=== PATIENT | male | born 1985 | race Caucasian/White ===

== ENCOUNTER 2020-01-15 14:48 | Outpatient (CLI) | payer OTHER, SELFPAY ==
--- NOTE | ~2020-01-15 | XR_ITS ---
EXAMINATION: XR wrist LT min 3V DATE: 01/15/2020 15:01 INDICATION: Left wrist injury. Foreign body. TECHNIQUE: 4 views of left wrist were obtained. COMPARISON: Left hand radiographs 06/17/2011 FINDINGS: Bone alignment is normal. No fracture. Joint spaces are well maintained. IMPRESSION: 1. Normal left wrist. No radiopaque foreign body. Reviewed, dictated and finalized at location A.
== END 2020-01-15 14:49 | disposition home or self-care (01) ==
LOC: CHSIMG 14:49
PROVIDERS: PCP Family Medicine; Visit Provider Family Medicine
DX: M25.532 Pain in left wrist (principal)
CPT/HCPCS: 73110

== ENCOUNTER 2020-07-18 20:30 | Emergency (ER) | payer OTHER, SELFPAY ==
--- NOTE | ~2020-07-18 | CT_ITS ---
EXAMINATION: CT abdomen pelvis wo con DATE: 07/18/2020 21:10 INDICATION: Left flank pain TECHNIQUE: Computed tomography (CT) of the abdomen and pelvis was performed without intravenous contr ast. The dose-length product (DLP) was 1375.38 mGy-cm. Automated exposure control and iterative recon struction technique were employed. COMPARISON: 05/11/2017, 04/22/2013 FINDINGS: Minimal dependent atelectasis is present in the lung bases. The heart size is normal. The l iver, spleen, pancreas, gallbladder, and adrenal glands are normal. There is a [address] one of the left kidney upper pole. The right kidney is unremarkable. No stones are identified in the ureters or bladder. There is no hydronephrosis or hydroureter. A chronic 5.5 x 4.3 cm cystic lesion i s seen in the left pelvis abutting the left posterolateral bladder wall which has not significantly c hanged. No pathologically enlarged abdominal or pelvic lymph nodes are identified. There is no free i ntraperitoneal gas or evidence of bowel obstruction. The appendix is normal. There are changes of ant erior and posterior fusion at L5-S1. IMPRESSION: 1. No CT correlate for the patient's symptoms. 2. Nonobstructing left nephrolithiasis. 3. Chronic cystic lesion of the left pelvis abutting the posterior bladder without significant change which could reflect a cystic seminal vesicle lesion, lymphangioma, enteric duplication cyst, or less likely bladder diverticulum. Reviewed, dictated and finalized at location A. CONSULTANT IMPRESSION: 1. No CT correlate for the patient's symptoms. 2. Nonobstructing left nephrolithiasis. 3. Chronic cystic lesion of the left pelvis abutting the posterior bladder with out significant change which could reflect a cystic seminal vesicle lesion, lym phangioma, enteric duplication cyst, or less likely bladder diverticulum.
[2020-07-18 20:35] VITALS: BP 139/84; PULSE 77; RESP 19; TEMP 36.9; O2SAT 100
[2020-07-18] MEDS: KETOROLAC (*BKC) 60 MG/2 ML VIAL IM (20:52)
[2020-07-18] MEDS: ONDANSETRON HCL ODT 4 MG TABLET PO (20:52)
[2020-07-18 21:03] LABS: Add Urine Microscopic? NO; Appearance Urine Clear (Clear); Bilirubin Urine Negative (Negative); Blood Urine Negative (Negative); Color Urine Yellow (Yellow); Glucose Urine UA Negative (Negative); Ketones Urine Negative (Negative); Leukocyte Esterase Ur Negative (Negative); Nitrate Urine Negative (Negative); Protein Urine Negative (Negative); Urobilinogen Urine 0.2 mg/dL (0.2-1.0)
[2020-07-18 21:08] LABS: Hematocrit 46.4 % (40.0-54.0); Hemoglobin 15.9 g/dL (14.0-18.0); Mean Corpuscular HGB Conc 34.3 g/dL (32.0-36.0); Mean Corpuscular Hemoglobin 31.1 pg (27.0-31.0); Mean Corpuscular Volume 90.6 fL (78.0-102.0); Mean Platelet Volume 10.4 fl (8.7-11.0); Platelet Count Result 321 K/mm3 (150-420); Red Blood Count 5.12 M/mm3 (4.70-6.10); Red Cell Distribution Width 12.5 % (11.6-14.4); White Blood Count 12.1 K/mm3 (4.8-10.8)
--- NOTE | 2020-07-18 21:10 | ED.ABDPAIN ---
HPI - Abdominal Pain General Chief Complaint: Urogenital-Male Stated Complaint: possible kidney stone Time Seen by Provider: 07/18/20 21:12 Source: patient and family (He has had left flank pain since this am early when he woke. Pain has been moderately severe, sharp, ongoing, not releived by measures taken at home. He says this feels like a kidney stone he had in the past, and he comes in because of this reason. ) Mode of arrival: ambulatory Limitations: no limitations History of Present Illness HPI narrative: Patient comes in due to moderately severe to severe sharp ongoing left flank pain radiating around to groin, this has been ongoing since this am when he woke. This feels like a kidney stone he had in the past. He has tolerated this all day, and comes in now because he has been developing nausea with this within the last hour. MD elicited complaint: flank pain Pertinent past history: kidney stones Pain Consistency: constant Exacerbating factors: nothing Relieving factors: nothing Related Data Allergies Allergy/AdvReac Type Severity Reaction Status Date / Time No Known Allergies Allergy Verified 07/18/20 20:56 Review of Systems Constitutional: Constitutional: Reports no additional constitutional complaints Eyes: Eyes: Reports no additional eye complaints ENT: Reports system reviewed and no additional complaints, except as documented Cardiovascular: Cardiovascular: Reports no additional cardiovascular complaints Respiratory: Respiratory: Reports no additional respiratory complaints Gastrointestinal: Gastrointestinal: Reports no additional gastrointestinal complaints Genitourinary: Genitourinary: Reports no additional male genitourinary complaints Musculoskeletal: Musculoskeletal: Reports no additional musculoskeletal complaints Integumentary/Breasts: Skin/Breast: Reports system reviewed and no additional complaints, except as docu Neurologic: Reports system reviewed and no additional complaints, except as documented Psychiatric: Psychiatric: Reports no additional psychiatric complaints Endocrine: Endocrine: Reports no additional endocrine complaints Hematologic/Lymphatic: Hematologic/Lymphatic: Reports no additional hematologic/lymphatic complaints Allergic/Immunologic: Allergic/Immunologic: Reports no additional allergic/immunologic complaints [facility] Past Medical History Medical History Renal calculi Surgical History Surgical History Previous back surgery Family History Family History (Updated 07/18/20 @ 21:19 by Prince Trevizo MD) Mother Psoriatic arthritis Social History Social History Smoking packs per day: 1 Smoking cigarettes per day: 20.0 Years smoked: 20 Smoking pack-years: 20.00 Smoking status: Current every day smoker Tobacco type: cigarettes Alcohol intake: never Substance use: current Substance use type: marijuana Living arrangements: with family Exam Narrative: Exam Narrative: He appears uncomfortable Const: Nutritional Appearance: well nourished Orientation/consciousness: patient oriented x3 HENMT: Head: normal to inspection Face and sinus: normal facial exam Eyes: Conjunctivae: conjunctivae normal Pupils: Equal, round and reactive pupils present Neck: Neck: normal visual inspection Chest: Chest palpation & inspection: normal inspection of the chest Resp: Effort & Inspection: normal respiratory effort Auscultation: clear to auscultation bilaterally Cardio: Rate: regular rate Rhythm: regular rhythm GI: GI Palp: Yes Soft to palpation Auscultation: normal bowel sounds : Testes: Testes normal Other: He has really no discomfort in LLQ, this does not appear to be a diverticulitis. Skin: General skin exam: normal color Neuro: General: patient oriented x3 and moves all extremities
[2020-07-18 21:18] LABS: Alanine Aminotransferase 36 U/L (16-63); Albumin Level 3.8 g/dL (3.4-5.0); Alkaline Phosphatase 87 U/L (46-116); Anion Gap 11 mmol/L (8-16); Aspartate Amino Transferase 23 U/L (15-37); Bilirubin,Total 0.3 mg/dL (0.00-1.00); Blood Urea Nitrogen 13 mg/dL (7-18); Calcium 8.3 mg/dL (8.5-10.1); Carbon Dioxide 26 mmol/L (21-32); Chloride 105 mmol/L (98-108); Estimated Glomerular Filt Rate > 60; Glucose 92 mg/dL (70-99); Osmolality Calculated 294 mOsm/kg (285-295); Sodium 142 mmol/L (136-145); Total Protein 7.3 g/dL (6.4-8.2)
[2020-07-18 21:30] LABS: Band Neutrophils Percent 0 % (0-6); Basophils Absolute Manual 0.12 K/mm3 (0-0.1); Basophils Percent Manual 1 % (0-1); Eosinophils Absolute Manual 0.24 K/mm3 (0.02-0.5); Eosinophils Percent Manual 2 % (1-6); Metamyelocytes Percent 1 %; Monocytes Absolute Manual 0.72 K/mm3 (0.1-0.90); Monocytes Percent Manual 6 % (3-9); Neutrophils Absolute Manual 3.99 K/mm3 (1.3-6.7); Neutrophils Percent Manual 33 % (46-73); Platelet Estimate Adequate (Adequate); Total Cells Counted 100
[2020-07-18 21:31] LABS: Atypical Lymphocytes Present; Lymphocytes Absolute Manual 6.89 K/mm3 (1.1-4.5); Lymphocytes Percent Manual 57 % (18-44)
[2020-07-18 22:23] VITALS: BP 138/80; PULSE 61; RESP 20; O2SAT 98
== END 2020-07-18 22:27 | disposition home or self-care (01) ==
PROVIDERS: Emergency Provider Emergency Medicine; PCP Family Medicine
DX: R10.9 Unspecified abdominal pain (principal)
CPT/HCPCS: 36415; 74176; 80053; 81003; 85025; 96372; 99283; 99284; A9270; J1885

== ENCOUNTER 2020-07-26 08:56 | Outpatient (CLI) | payer OTHER, SELFPAY ==
[2020-07-26 09:39] LABS: SARS-CoV-2 Ag Positive (Negative)
== END 2020-07-26 08:57 | disposition home or self-care (01) ==
LOC: CHSLAB 09:00
PROVIDERS: PCP Family Medicine; Visit Provider Family Medicine
DX: U07.1 COVID-19 (principal)
CPT/HCPCS: 87426

== ENCOUNTER 2020-09-29 13:28 | Outpatient (CLI) | payer OTHER, SELFPAY ==
--- NOTE | ~2020-09-29 | XR_ITS ---
EXAMINATION: XR_CERV2-3V_CR DATE: 09/29/2020 13:52 INDICATION: Chronic left-sided neck pain. TECHNIQUE: 3 views of cervical spine were obtained. COMPARISON: Cervical spine radiographs 02/27/2014 FINDINGS: There is 5 degrees levocurvature of cervicothoracic spine. Vertebral body heights and inter vertebral disc heights are normal. The uncovertebral joints and facet joints are unremarkable. No freedom tral canal stenosis or prevertebral soft tissue swelling. IMPRESSION: 1. No etiology for the patient's symptoms. Reviewed, dictated and finalized at location A. UP OPERATOR
--- NOTE | ~2020-09-29 | XR_ITS ---
EXAMINATION: XR thoracic spine 3V DATE: 09/29/2020 13:52 INDICATION: Left-sided back pain. TECHNIQUE: 3 views of the thoracic spine were obtained. COMPARISON: Thoracic spine radiographs 03/22/2017 FINDINGS: There is 6 degrees levocurvature of upper thoracic spine. Vertebral body heights and interv ertebral disc heights are normal. There are endplate osteophytes at multiple levels. IMPRESSION: 1. Mild thoracic spondylosis. Reviewed, dictated and finalized at location A. LOADER
== END 2020-09-29 13:29 | disposition home or self-care (01) ==
LOC: CHSIMG 13:30
PROVIDERS: PCP Family Medicine; Visit Provider Family Medicine
DX: M54.2 Cervicalgia (principal); M47.24 Other spondylosis with radiculopathy, thoracic region
CPT/HCPCS: 72040; 72072

== ENCOUNTER 2020-10-01 20:50 | Emergency (ER) | payer OTHER, SELFPAY ==
--- NOTE | ~2020-10-01 | XR_ITS ---
EXAMINATION: XR chest 1V portable DATE: 10/01/2020 21:14 INDICATION: Left chest pain. TECHNIQUE: A single frontal view of the chest was obtained. COMPARISON: Chest 2 views 11/11/17 FINDINGS: The chest demonstrates clear lungs without pneumonia, pleural effusion, or pneumothorax. Th e heart size is normal. IMPRESSION: 1. No acute cardiopulmonary disease. Reviewed, dictated and finalized at location A. ER SERVICE REPRESENTATIVE
[2020-10-01 20:55] VITALS: BP 134/77; PULSE 70; RESP 20; TEMP 36.6; O2SAT 100
--- NOTE | 2020-10-01 20:55 | ECG_ITS ---
Measurements Intervals [place] Rate: 74 P: 34 WI: 162 QRS: 73 QRSD: 103 T: 48 QT: 375 QTc: 416 Interpretive Statements SINUS RHYTHM MINIMAL Q WAVES- ANTEROLAT/INF LEADS BASELINE WANDER- II, AVR, AVL, AVF, V1-V6 BORDERLINE ECG Electronically Signed On 10-01-2020 21:21:59 LAUNDRY MANAGER by Fabrice Benavides D.O.
--- NOTE | 2020-10-01 21:20 | ED.CHESTPAIN ---
HPI - Chest Pain General Chief Complaint: Chest Pain Stated Complaint: chest pain, arm burning Time Seen by Provider: 10/01/20 21:10 Source: patient Mode of arrival: ambulatory Limitations: no limitations History of Present Illness HPI narrative: Patient comes in with chest pain to left chest, moderately severe, ongoing. This started after he walked the dog. Because it has been ongoing, moderately severe, sharp, not improving, he comes in. Related Data Allergies Allergy/AdvReac Type Severity Reaction Status Date / Time No Known Allergies Allergy Verified 07/18/20 20:56 Review of Systems Constitutional: Constitutional: Reports no additional constitutional complaints Eyes: Eyes: Reports no additional eye complaints ENT: Reports system reviewed and no additional complaints, except as documented and Reports Normal hearing present Cardiovascular: Cardiovascular: Reports no additional cardiovascular complaints Respiratory: Respiratory: Reports no additional respiratory complaints Gastrointestinal: Gastrointestinal: Reports no additional gastrointestinal complaints Genitourinary: Genitourinary: Reports no additional male genitourinary complaints Musculoskeletal: Musculoskeletal: Reports no additional musculoskeletal complaints Integumentary/Breasts: Skin/Breast: Reports system reviewed and no additional complaints, except as docu Neurologic: Reports system reviewed and no additional complaints, except as documented Psychiatric: Psychiatric: Reports no additional psychiatric complaints Endocrine: Endocrine: Reports no additional endocrine complaints Hematologic/Lymphatic: Hematologic/Lymphatic: Reports no additional hematologic/lymphatic complaints [facility] Past Medical History Medical History Renal calculi Surgical History Surgical History Previous back surgery Family History Family History Mother Psoriatic arthritis Social History Social History Smoking packs per day: 1 Smoking cigarettes per day: 20.0 Years smoked: 20 Smoking pack-years: 20.00 Smoking status: Current every day smoker Tobacco type: cigarettes Alcohol intake: never Substance use: current Substance use type: marijuana Exam Const: General: cooperative, healthy appearing and no acute distress Nutritional Appearance: average body habitus Orientation/consciousness: oriented to person Limitations: no limitations HENMT: Head: normal to inspection, normocephalic and atraumatic Ears: hearing grossly normal bilaterally, external ears normal and TM's normal bilaterally General nose exam: Normal external nose present and Normal nasal mucous membranes and turbinates present Face and sinus: normal facial exam Mouth: Yes Normal oral and palatal mucosa present, Yes oropharynx normal, Yes moist mucous membranes and Yes moist mucous membranes abnormal Throat: posterior oropharynx normal Eyes: General: appearance normal, both eyes and all related structures Conjunctivae: conjunctivae normal Neck: Neck: normal visual inspection Lymphatic: no lymphadenopathy noted Chest: Chest palpation & inspection: normal inspection of the chest Resp: Effort & Inspection: normal respiratory effort and able to speak in complete sentences Auscultation: clear to auscultation bilaterally Cardio: Jugular venous distension: no JVD Rate: regular rate Rhythm: regular rhythm Heart sounds: S1 normal heart sound present and S2 normal heart sound present GI: Inspection: normal to inspection GI Palp: Yes Soft to palpation (nontender) Back/Spine/Pelvis: Back: no CVA tenderness Skin: General skin exam: normal color Neuro: General: oriented to person, oriented to place and oriented to time Cranial nerves: Yes CN's II-XII intact bilaterally and Yes Facia
[2020-10-01 21:27] LABS: Basophils Absolute Auto 0.09 K/mm3 (0.00-0.10); Basophils Percent Auto 0.8 % (0.0-1.0); Eosinophils Absolute Auto 0.23 K/mm3 (0.02-0.50); Eosinophils Percent Auto 2.1 % (1.0-6.0); Hematocrit 43.6 % (40.0-54.0); Hemoglobin 14.6 g/dL (14.0-18.0); Immature Granulocyte Absolute 0.07 K/mm3 (0.00-0.00); Immature Granulocyte Percent A 0.7 % (0.0-0.0); Lymphocytes Absolute Auto 5.45 K/mm3 (1.10-4.50); Lymphocytes Percent Auto 50.8 % (18.0-42.0); Mean Corpuscular HGB Conc 33.5 g/dL (32.0-36.0); Mean Corpuscular Hemoglobin 30.5 pg (27.0-31.0); Mean Corpuscular Volume 91.2 fL (78.0-102.0); Mean Platelet Volume 10.6 fl (8.7-11.0); Monocytes Absolute Auto 0.85 K/mm3 (0.10-0.90); Monocytes Percent Auto 7.9 % (2.0-11.0); Neutrophils Percent Auto 37.7 % (50.0-70.0); Platelet Count Result 282 K/mm3 (150-420); Red Blood Count 4.78 M/mm3 (4.70-6.10); Red Cell Distribution Width 12.7 % (11.6-14.4); White Blood Count 10.7 K/mm3 (4.8-10.8)
[2020-10-01] MEDS: KETOROLAC (*BKC) 60 MG/2 ML VIAL IM (21:44)
[2020-10-01 21:50] LABS: Alanine Aminotransferase 36 U/L (16-63); Albumin Level 3.5 g/dL (3.4-5.0); Alkaline Phosphatase 77 U/L (46-116); Anion Gap 6 mmol/L (8-16); Aspartate Amino Transferase 17 U/L (15-37); Bilirubin,Total 0.2 mg/dL (0.00-1.00); Blood Urea Nitrogen 18 mg/dL (7-18); Calcium 8.7 mg/dL (8.5-10.1); Carbon Dioxide 28 mmol/L (21-32); Chloride 104 mmol/L (98-108); Estimated CRCL calculation 94 ml/min; Estimated Glomerular Filt Rate > 60; Glucose 134 mg/dL (70-99); Osmolality Calculated 289 mOsm/kg (285-295); Potassium 4.1 mmol/L (3.5-5.1); Sodium 138 mmol/L (136-145); Total Protein 6.6 g/dL (6.4-8.2); Troponin I 4.7 ng/L (0.00-60.4)
[2020-10-01 21:58] LABS: Creatine Kinase 103 U/L (39-308)
[2020-10-01 22:04] LABS: BNP < 5 pg/mL (0-100)
[2020-10-01 22:10] LABS: D Dimer 0.19 mg/L (0.19-0.50)
[2020-10-01 22:30] VITALS: BP 129/72; PULSE 66; RESP 16; O2SAT 99
[2020-10-01 23:00] VITALS: BP 128/79; PULSE 66; RESP 16; O2SAT 99
[2020-10-01 23:05] LABS: Amphetamine Screen Urine Negative (Negative); Barbiturate Screen Urine Negative (Negative); Benzodiazepines Screen Urine Negative (Negative); Cannabinoid Screen Urine Positive (Negative); Cocaine Screen Urine Negative (Negative); Methadone Screen Urine Negative (Negative); Opiate Screen Urine Negative (Negative); Phencyclidine Screen Urine Negative (Negative)
[2020-10-01 23:29] VITALS: BP 128/75; PULSE 70; RESP 16; TEMP 36.1; O2SAT 99
[2020-10-02 00:18] VITALS: BP 116/72; PULSE 64; RESP 16; O2SAT 99
[2020-10-02 01:10] VITALS: BP 128/72; PULSE 61; RESP 16; O2SAT 99
[2020-10-02 01:29] LABS: Troponin I 4.8 ng/L (0.00-60.4)
[2020-10-02 01:37] VITALS: BP 120/70; PULSE 74; RESP 16; TEMP 36.6; O2SAT 98
== END 2020-10-02 01:39 | disposition home or self-care (01) ==
PROVIDERS: Emergency Provider Emergency Medicine; PCP Family Medicine
DX: R07.89 Other chest pain (principal)
CPT/HCPCS: 36415; 71045; 80053; 80307; 82550; 83880; 84484; 85025; 85380; 93005; 96372; 99283; 99284; J1885

== ENCOUNTER 2020-12-22 22:11 | Emergency (ER) | payer OTHER, SELFPAY ==
--- NOTE | ~2020-12-22 | XR_ITS ---
EXAMINATION: XR knee LT 3V DATE: 12/22/2020 22:59 INDICATION: Left knee pain TECHNIQUE: Three views of the left knee were obtained. COMPARISON: None. FINDINGS: Alignment is normal. No fracture or osteochondral lesion. Joint spaces are normal with no e rosions. No joint effusion/synovitis. There is mild prepatellar soft tissue swelling. IMPRESSION: 1. No acute osseous abnormality. Reviewed, dictated and finalized at location A.
[2020-12-22 22:30] VITALS: BP 109/82; PULSE 81; RESP 20; TEMP 36.1; O2SAT 99
--- NOTE | 2020-12-22 23:17 | ED.GENADULT ---
HPI - General Adult General Chief complaint: Extremity Injury, Lower Stated complaint: L knee pain Source: patient and family Mode of arrival: ambulatory Limitations: no limitations History of Present Illness HPI narrative: Jorje is a 35M with a PMH of kidney stones, GERD, and chronic back pain that presented to the ER after injuring his left knee. He was pushing his car to the side of the road when he tried to jump in and missed. He had one foot in but his left foot slipped and he landed on his knee. He had immediate pain there but no other injuries. Related Data Home Medications Medication Instructions Recorded Confirmed No Home Medications 12/23/20 12/23/20 Allergies Allergy/AdvReac Type Severity Reaction Status Date / Time No Known Allergies Allergy Verified 07/18/20 20:56 Review of Systems Constitutional: Constitutional: Reports no additional constitutional complaints Eyes: Eyes: Reports no additional eye complaints ENT: Reports system reviewed and no additional complaints, except as documented Cardiovascular: Cardiovascular: Reports no additional cardiovascular complaints Respiratory: Respiratory: Reports no additional respiratory complaints Gastrointestinal: Gastrointestinal: Reports no additional gastrointestinal complaints Genitourinary: Genitourinary: Reports no additional male genitourinary complaints Musculoskeletal: Musculoskeletal: Reports no additional musculoskeletal complaints Integumentary/Breasts: Skin/Breast: Reports system reviewed and no additional complaints, except as docu Neurologic: Reports system reviewed and no additional complaints, except as documented Psychiatric: Psychiatric: Reports no additional psychiatric complaints Endocrine: Endocrine: Reports no additional endocrine complaints Hematologic/Lymphatic: Hematologic/Lymphatic: Reports no additional hematologic/lymphatic complaints Allergic/Immunologic: Allergic/Immunologic: Reports no additional allergic/immunologic complaints [facility] Past Medical History Medical History Renal calculi Surgical History Surgical History Previous back surgery Family History Family History Mother Psoriatic arthritis Social History Social History Smoking packs per day: 1 Smoking cigarettes per day: 20.0 Years smoked: 20 Smoking pack-years: 20.00 Smoking status: Current every day smoker Tobacco type: cigarettes Alcohol intake: never Substance use: current Substance use type: marijuana Exam Const: General: no acute distress and alert Orientation/consciousness: patient oriented x3 HENMT: Head: normal to inspection Other: atraumatic Eyes: Conjunctivae: conjunctivae normal Pupils: Equal, round and reactive pupils present Neck: Neck: normal visual inspection Chest: Chest palpation & inspection: normal inspection of the chest Resp: Effort & Inspection: normal respiratory effort, not labored and not tachypneic Cardio: Rate: regular rate Back/Spine/Pelvis: Other: No midline tenderness Skin: General skin exam: normal color Other: Quarter sized abraison over the left knee Neuro: General: patient oriented x3, moves all extremities and CN's II-XI intact bilaterally Extrem: Other: Left knee had no deformity. It was TTP over the lateral joint line. No varus/valgus laxity. Negative anterior/posterior drawer test. +Zohreh and +Thessaly test Psych: Appearance: grossly normal Mental Status: mental status grossly normal Affect: normal affect Thought content: Yes Normal thought content present Course Course Emergency Course: Ordered Toradol for the pain. EXAMINATION: XR knee LT 3V DATE: 12/22/2020 22:59 INDICATION: Left knee pain TECHNIQUE: Three views of the left k
[2020-12-23 00:10] VITALS: BP 109/82; PULSE 81; RESP 20; TEMP 36.1; O2SAT 100
== END 2020-12-22 23:25 | disposition home or self-care (01) ==
PROVIDERS: Emergency Provider Family Medicine; PCP Family Medicine
DX: S83.92XA Sprain of unspecified site of left knee, initial encounter (principal)
CPT/HCPCS: 73562; 99282; 99283

== ENCOUNTER 2020-12-23 08:45 | Outpatient (RCR) | payer OTHER, SELFPAY ==
--- NOTE | 2020-12-23 09:36 | PTOPEVAL ---
Thank you for referring Jorje Magallanes to [facility].? The patient is scheduled to be seen for therapy? __3__x/week for 12 visits. Please review, sign, date and return this plan of care TREVIN. I agree with and certify that the following plan of care is medically necessary. Referring Physician Date Admitting Provider: Attending Provider: marietta roberson Referring Provider: *PT Outpatient Evaluation Start: 12/23/20 09:01 Freq: Status: Active Protocol: Document 12/23/20 09:02 LEEANNE (Rec: 12/23/20 09:36 LEEANNE [id number]) Therapy Assessment Status Assessment Status Assessment Status Evaluation Outpatient Past Medical History Gastrointestinal History Hx Gastroesophageal Reflux Disease Yes Genitourinary History Hx Kidney Stones Yes Musculoskeletal History Hx Back Pain Yes Hx Spinal Surgery Yes HEENT History Hx Dental Problems Yes Psychosocial History Hx Anxiety Yes Evaluation Information Problem Diagnosis left shoulder impingement syndrome Onset 12/20/20 Subjective Information Pt. reports experiencing on/ Query Text:As Reported By Patient/ off shoulder pain for several Family years. He states that pain is located in the front of the left shoulder. He recalls no specific activities that increase his shoulder pain. He reports that working above his head is difficult due to shoulder pain. He states that pain does not disrupt sleep. He reports that his goal for therapy is to decrease his left shoulder pain. Diagnostic Tests X-Rays For This Problem Yes Prior Level of Function Activity Level (Last 3 Months) Occupation unemployed Hand Dominance Right Activity of Daily Living Ability Independent Indoor/Home Mobility Independent Community Mobility Independent Stairs Ability Independent Functional Cognition (Planning, Shopping Independent , Taking Medications) Cooking Yes Cleaning Yes Laundry Yes Shopping Yes Driving Yes Comments Additional Prior Level of Function Pt. reports he recieved a Comments cortisone injection about 3 weeks ago with temporary
--- NOTE | 2021-01-19 10:26 | PCPTNOTE ---
Pt. attended a total of 3 sessions from 12/23/20 to 12/30/20. He has failed to return to the clinic. Refer to last daily note for pt. discharge status. Thank you for the referral of this pt. Gallito Saldaña, MPT
== END 2020-12-30 14:21 | disposition home or self-care (01) ==
LOC: CHSPT 08:45
PROVIDERS: PCP Family Medicine
DX: M75.42 Impingement syndrome of left shoulder (principal)
CPT/HCPCS: 97014; 97110; 97161; G0283

== ENCOUNTER 2021-03-03 11:22 | Emergency (ER) | payer OTHER, SELFPAY ==
[2021-03-03 11:30] VITALS: BP 146/94; PULSE 72; RESP 16; TEMP 36.4; O2SAT 99
[2021-03-03] MEDS: diazePAM (*CRX) 5 MG TABLET PO (11:47)
--- NOTE | 2021-03-03 12:05 | ED.PSYCH ---
HPI - Psych General Chief Complaint: Psychiatric Symptoms Stated Complaint: feels like having anxiety attack Time Seen by Provider: 03/03/21 11:50 Source: patient and family Mode of arrival: ambulatory Limitations: no limitations History of Present Illness HPI Narrative: Patient comes in feeling he has been having an anxiety attack, moderately severe, associated with him feeling he has a sensation of not being able to rest, which started a few days ago, and has been ongoing now for about 3 days. There is nothing known to have precipitated this. This has caused him distress. Talking to himself, an d taking the measures he knows to take at home had not seemed to help. No modifying factors. He has a history of anxiety attacks, and has taken medications for this in the past. Onset (ago): day(s) Duration: constant History of same: Yes Relieving factors: none Exacerbating factors: none Associated symptoms: denies other symptoms Treatments prior to arrival: other (talking to himself) Related Data Home Medications Medication Instructions Recorded Confirmed No Home Medications 12/23/20 12/23/20 Allergies Allergy/AdvReac Type Severity Reaction Status Date / Time No Known Allergies Allergy Verified 07/18/20 20:56 Review of Systems Constitutional: Constitutional: Reports no additional constitutional complaints Eyes: Eyes: Reports no additional eye complaints ENT: Reports system reviewed and no additional complaints, except as documented Cardiovascular: Cardiovascular: Reports no additional cardiovascular complaints Respiratory: Respiratory: Reports no additional respiratory complaints Gastrointestinal: Gastrointestinal: Reports no additional gastrointestinal complaints Genitourinary: Genitourinary: Reports no additional male genitourinary complaints Musculoskeletal: Musculoskeletal: Reports no additional musculoskeletal complaints Integumentary/Breasts: Skin/Breast: Reports system reviewed and no additional complaints, except as docu Neurologic: Reports system reviewed and no additional complaints, except as documented Psychiatric: Psychiatric: Reports no additional psychiatric complaints Endocrine: Endocrine: Reports no additional endocrine complaints Hematologic/Lymphatic: Hematologic/Lymphatic: Reports no additional hematologic/lymphatic complaints Allergic/Immunologic: Allergic/Immunologic: Reports no additional allergic/immunologic complaints [facility] Past Medical History Medical History Renal calculi Surgical History Surgical History Previous back surgery Family History Family History Mother Psoriatic arthritis Social History Social History Smoking packs per day: 1 Smoking cigarettes per day: 20.0 Years smoked: 20 Smoking pack-years: 20.00 Smoking status: Current every day smoker Tobacco type: cigarettes Alcohol intake: never Substance use: current Substance use type: marijuana Exam Const: General: healthy appearing, no acute distress and alert Orientation/consciousness: patient oriented x3 HENMT: Head: normal to inspection Ears: external ears normal and TM's normal bilaterally General nose exam: Normal external nose present and Normal nares present Mouth: Yes Normal oral and palatal mucosa present Eyes: Conjunctivae: conjunctivae normal Neck: Neck: normal visual inspection Chest: Chest palpation & inspection: normal inspection of the chest Resp: Effort & Inspection: normal respiratory effort Auscultation: clear to auscultation bilaterally Cardio: Rate: regular rate Rhythm: regular rhythm GI: GI Palp: Yes Soft to palpation (nontender) Auscultation: normal bowel sounds Skin: General skin exam: normal color Rashes: no rashes Neuro: General: patie
[2021-03-03 12:25] VITALS: RESP 15
== END 2021-03-03 12:25 | disposition home or self-care (01) ==
PROVIDERS: Emergency Provider Emergency Medicine; PCP Family Medicine
DX: F41.9 Anxiety disorder, unspecified (principal)
CPT/HCPCS: 99282; 99283; A9270

== ENCOUNTER 2021-03-24 10:20 | Outpatient (CLI) | payer OTHER, SELFPAY | END 2021-03-24 10:21 | disposition home or self-care (01) | LOC: CHSIMG 10:21 | PROVIDERS: PCP Family Medicine; Visit Provider Family Medicine | DX: R94.31 Abnormal electrocardiogram [ECG] [EKG] (principal) | CPT/HCPCS: 93306 ==

== ENCOUNTER 2021-10-31 11:34 | Outpatient (CLI) | payer OTHER, SELFPAY ==
--- NOTE | ~2021-10-31 | XR_ITS ---
XR ankle RT min 3V DATE: 10/31/2021 11:58 INDICATION: Right ankle pain for 2 days after kicking injury TECHNIQUE: 5 views COMPARISON: None FINDINGS: Posterior calcaneal enthesopathy. Slight plantar calcaneal enthesopathy. No fracture or dislocation of the ankle or disruption of the ankle mortise. No periosteal reaction or bone destruction. IMPRESSION: No fracture or dislocation Reviewed, dictated and finalized at location A. IMPRESSION: No fracture or dislocation
== END 2021-10-31 11:35 | disposition home or self-care (01) ==
LOC: CHSIMG 11:36
PROVIDERS: PCP Family Medicine; Visit Provider Family Medicine
DX: M25.571 Pain in right ankle and joints of right foot (principal)
CPT/HCPCS: 73610

== ENCOUNTER 2022-08-02 16:15 | Outpatient (CLI) | payer OTHER, SELFPAY ==
--- NOTE | ~2022-08-02 | XR_ITS ---
XR_CERV2-3V_CR DATE: 08/02/2022 16:36 INDICATION: Neck pain, pain at base of skull for 5 days TECHNIQUE: AP, open-mouth, lateral and swimmer views COMPARISON: None FINDINGS: There is straightening of the cervical spine which may be due to muscle spasm. C1 and C2 ar e normally aligned and the odontoid process is intact. No fracture or dislocation or locked facet or prevertebral soft tissue swelling. Cervical interspaces are well preserved. IMPRESSION: Straightening of the cervical spine, which may be due to muscle spasm Reviewed, dictated and finalized at Location A. Reviewed, dictated and finalized at location A. GE DECKHAND IMPRESSION: Straightening of the cervical spine, which may be due to muscle spa sm
== END 2022-08-02 16:16 | disposition home or self-care (01) ==
LOC: CHSIMG 16:16
PROVIDERS: PCP Family Medicine; Visit Provider Family Medicine
DX: M54.2 Cervicalgia (principal); M53.82 Other specified dorsopathies, cervical region
CPT/HCPCS: 72040

== ENCOUNTER 2022-08-14 15:06 | Outpatient (RCR) | payer OTHER, SELFPAY ==
--- NOTE | 2022-08-14 14:31 | PTOPEVAL1 ---
Assessment and note entered by Heidi Newberry DPT Evaluation Information Assessment Status Evaluation Diagnosis Cervicalgia Onset 08/04/2022 Subjective Information Pt reports that his neck pain began a few weeks ago. He notes that he gets a lot of bad headaches that hurt at the base of his neck and radiates to his ears and top of his head. He reports he feels more stiff in the neck and looks more with the shoulders than the neck. He notes that headaches do not occur all of the time and he has had 2 bad headaches. He reports that when he is having these headaches, he has blurry vision and feels off balance and they lasted a few hours. He uses diclofenac to improve his symptoms. Pt reports that this hasn't really affected his sleep. He did notice that when turning his head, he occasionally gets burning down his arms. Pt reports that in his past, he has had multiple head injuries but were never diagnosed as concussions. He reports that he likes to play pool a lot and notes his head is constantly in awkward positions. Pt would like to reduce pain to be able to enjoy his usual activities. Reported Pain Level Pain Score 0: Self Report Assessment PT Clinical Summary Pt presents to PT with headaches and neck pain and presents with decreased deep neck flexor endurance, decreased mobility, and altered posture . His current deficits make it more challenging for him to rotate his head and move his head without pain. He was provided with an HEP focused on improving mobility within his tolerance. He will benefit from skilled PT to facilitate symptom relief, improve the aforementioned impairments, and return to functional and recreational activities. Plan of Care Interventions Electrical Stimulation,Hot Pack/Cold Pack,Manual Therapy,Patient/Caregiver Educati,Therapeutic Activities,Therapeutic Exercise PT Services Indicated Yes Treatment Frequency and 2x week for 8 visits Duration These treatments will address the objective and functional deficits as defined above. The patient will be advanced safely and appropriately in order for the patient to progress towards his/her prior level of function. Additional exercises will be introduced and as well as a comprehensive home exercise program upon discharge, if needed, ?to ensure carryover of functional gains achieved in the clinic. This treatment plan has been reviewed and agreement upon by the patient.
== END 2022-08-22 10:06 | disposition home or self-care (01) ==
LOC: CHSPT 15:06
PROVIDERS: PCP Family Medicine; Visit Provider Family Medicine
DX: M54.2 Cervicalgia (principal)
CPT/HCPCS: 97014; 97110; 97140; 97161; G0283

== ENCOUNTER 2022-09-18 11:10 | Outpatient (CLI) | payer OTHER, SELFPAY ==
--- NOTE | ~2022-09-18 | XR_ITS ---
EXAMINATION: XR thoracic spine 3V DATE: 09/18/2022 11:27 INDICATION: Thoracic spine pain TECHNIQUE: AP, lateral and lateral swimmer's views of the thoracic spine were obtained. COMPARISON: 09/29/2020 FINDINGS: Bone alignment is normal. There is no fracture. Small degenerative osteophytes project from the anterior endplates of multiple vertebral bodies. The vertebral body heights and intervertebral d isc spaces are maintained. IMPRESSION: 1. Mild thoracic spondylosis without acute findings or significant interval change. Reviewed, dictated and finalized at location B. OLOGICAL SURGEON IMPRESSION: 1. Mild thoracic spondylosis without acute findings or significant interval emy nge.
== END 2022-09-18 11:11 | disposition home or self-care (01) ==
LOC: CHSIMG 11:11
PROVIDERS: PCP Family Medicine; Visit Provider Family Medicine
DX: M54.6 Pain in thoracic spine (principal); M43.04 Spondylolysis, thoracic region
CPT/HCPCS: 72072

== ENCOUNTER 2022-11-27 10:15 | Outpatient (CLI) | payer OTHER, SELFPAY ==
--- NOTE | ~2022-11-27 | XR_ITS ---
EXAMINATION: XR ankle LT min 3V DATE: 11/27/2022 10:36 INDICATION: Left ankle pain and swelling TECHNIQUE: Anteroposterior, lateral, mortise, and additional oblique view of the ankle were obtained. COMPARISON: None. FINDINGS: Bone alignment is normal. There is no fracture. The joint spaces are unremarkable. A pediatric allergist ior calcaneal enthesophyte is noted. There is medial soft tissue swelling of ankle. IMPRESSION: 1. No acute osseous abnormality. Reviewed, dictated and finalized at location B.
[2022-11-27 10:32] LABS: Basophils Absolute Auto 0.08 K/mm3 (0.00-0.10); Basophils Percent Auto 0.9 % (0.0-1.0); Eosinophils Absolute Auto 0.11 K/mm3 (0.02-0.50); Eosinophils Percent Auto 1.3 % (1.0-6.0); Hematocrit 43.8 % (40.0-54.0); Hemoglobin 14.9 g/dL (14.0-18.0); Immature Granulocyte Absolute 0.03 K/mm3 (0.00-0.00); Immature Granulocyte Percent A 0.4 % (0.0-0.0); Lymphocytes Absolute Auto 3.81 K/mm3 (1.10-4.50); Lymphocytes Percent Auto 44.7 % (18.0-42.0); Mean Corpuscular Hemoglobin 31.6 pg (27.0-31.0); Mean Corpuscular Volume 92.8 fL (78.0-102.0); Mean Platelet Volume 10.3 fl (8.7-11.0); Monocytes Percent Auto 8.2 % (2.0-11.0); Neutrophils Absolute Auto 3.8 K/mm3 (1.7-7.2); Neutrophils Percent Auto 44.5 % (50.0-70.0); Platelet Count Result 284 K/mm3 (150-420); Red Blood Count 4.72 M/mm3 (4.70-6.10); Red Cell Distribution Width 12.5 % (11.6-14.4); White Blood Count 8.5 K/mm3 (4.8-10.8)
[2022-11-27 10:52] LABS: Anion Gap 7 mmol/L (8-16); Blood Urea Nitrogen 10 mg/dL (7-18); CRP < 0.5 mg/dL (0.0-0.9); Carbon Dioxide 29 mmol/L (21-32); Chloride 106 mmol/L (98-108); Estimated Glomerular Filt Rate > 60; Glucose 89 mg/dL (70-99); Osmolality Calculated 292 mOsm/kg (285-295); Potassium 4.5 mmol/L (3.5-5.1); Sodium 142 mmol/L (136-145); Uric Acid 5.4 mg/dL (3.5-7.2)
[2022-11-27 10:56] LABS: Rheumatoid Factor Screen Negative (Negative)
[2022-11-27 11:35] LABS: Erythrocyte Sedimentation Rate 2 mm/hr (0-15)
[2022-11-30 13:05] LABS: Cyclic Citrullinated Peptide <16 Units (<20)
== END 2022-11-27 10:16 | disposition home or self-care (01) ==
PROVIDERS: PCP Family Medicine; Visit Provider Family Medicine
DX: M25.572 Pain in left ankle and joints of left foot (principal)
CPT/HCPCS: 36415; 73610; 80048; 84550; 85025; 85652; 86140; 86430

== ENCOUNTER 2023-05-23 15:44 | Emergency (ER) | payer OTHER, SELFPAY ==
--- NOTE | ~2023-05-23 | XR_ITS ---
EXAMINATION: XR shoulder LT min 2V DATE: 05/23/2023 16:30 INDICATION: Left shoulder pain. Injury. TECHNIQUE: 4 views of left shoulder were obtained. COMPARISON: Left shoulder radiographs 12/13/2018 FINDINGS: Bone alignment is normal. No fracture. The glenohumeral joint is normal. There is mild acro mioclavicular joint osteoarthritis. IMPRESSION: 1. Mild acromioclavicular joint osteoarthritis. Reviewed, dictated and finalized at location E.
--- NOTE | ~2023-05-23 | XR_ITS ---
EXAMINATION: XR chest 1V portable DATE: 05/23/2023 16:29 INDICATION: Left shoulder pain. Injury. TECHNIQUE: A single frontal view of the chest was obtained. COMPARISON: Chest single view 10/01/2020 FINDINGS: There is no pneumonia, pleural effusion, or pneumothorax. The heart size is normal. There a re prominent paracardial fat pads. IMPRESSION: 1. No acute cardiopulmonary disease. Reviewed, dictated and finalized at location E.
[2023-05-23 15:47] VITALS: BP 130/95; PULSE 69; RESP 20; TEMP 37.3; O2SAT 100
--- NOTE | 2023-05-23 15:52 | ED.UPPEXIN ---
HPI - Extremity Injury (Upper) General Chief Complaint: Back Pain/Injury Stated Complaint: shoulder injuries Time Seen by Provider: 05/23/23 15:51 Source: patient Mode of arrival: ambulatory Limitations: no limitations History of Present Illness HPI narrative: 37-year-old male was under a truck trying to lift it on a Too when the Too gave way and the truck fell on his left shoulder while he was laying on his side. this happened a few hours ago. He presents to the ER with -- left shoulder pain. Is decreased range of motion. -- right lower chest wall pain. No pleuritic pain. No head injury. No head or neck pain/ Back pain. No loss of consciousness. MD complaint: injury to: left Onset (ago): hour(s) ( 4 hours ago.) Other Extremity Injury: Left: shoulder Other injuries: chest Handedness: right Place: work Severity: moderate Relieving factors: none Exacerbating factors: none Context: direct blow Associated symptoms: denies other symptoms Related Data Home Medications Medication Instructions Recorded Confirmed No Home Medications 12/23/20 03/03/21 Allergies Allergy/AdvReac Type Severity Reaction Status Date / Time No Known Allergies Allergy Verified 07/18/20 20:56 Review of Systems Review of Systems: All systems reviewed & are unremarkable except as noted in HPI and below Constitutional: Constitutional: Reports as per HPI and Reports no additional constitutional complaints Eyes: Eyes: Reports as per HPI and Reports no additional eye complaints ENT: Reports system reviewed and no additional complaints, except as documented and Reports as per HPI Cardiovascular: Cardiovascular: Reports as per HPI and Reports no additional cardiovascular complaints Respiratory: Respiratory: Reports as per HPI and Reports no additional respiratory complaints Comments: Bruising over right lower chest wall. Gastrointestinal: Gastrointestinal: Reports as per HPI Genitourinary: Genitourinary: Reports no additional male genitourinary complaints Musculoskeletal: Musculoskeletal: Reports no additional musculoskeletal complaints Integumentary/Breasts: Skin/Breast: Reports system reviewed and no additional complaints, except as docu and Reports as per HPI Neurologic: Reports system reviewed and no additional complaints, except as documented and Reports as per HPI Psychiatric: Psychiatric: Reports no additional psychiatric complaints and Reports as per HPI Endocrine: Endocrine: Reports no additional endocrine complaints and Reports as per HPI Hematologic/Lymphatic: Hematologic/Lymphatic: Reports no additional hematologic/lymphatic complaints and Reports as per HPI Allergic/Immunologic: Allergic/Immunologic: Reports no additional allergic/immunologic complaints and Reports as per HPI [facility] Past Medical History Medical History Renal calculi Surgical History Surgical History Previous back surgery Family History Family History Mother Psoriatic arthritis Social History Social History Smoking packs per day: 1 Smoking cigarettes per day: 20.0 Years smoked: 20 Smoking pack-years: 20.00 Smoking status: Current every day smoker Tobacco type: cigarettes Alcohol intake: never Substance use: current Substance use type: marijuana Living arrangements: with family Exam Const: General: no acute distress Nutritional Appearance: obese Orientation/consciousness: patient oriented x3 Limitations: no limitations HENMT: Head: normal to inspection Ears: external ears normal Face/Nose/Sinus: Normal external nose present Face and sinus: normal facial exam Throat: posterior oropharynx normal Eyes: Conjunctivae: conjunctivae normal Pupils: Equal, round and reactive pupils pr
== END 2023-05-23 17:07 | disposition home or self-care (01) ==
PROVIDERS: Emergency Provider Internal Medicine Critical Care Medicine; PCP Family Medicine
DX: R07.89 Other chest pain (principal); M25.512 Pain in left shoulder; F17.210 Nicotine dependence, cigarettes, uncomplicated; W20.8XXA Other cause of strike by thrown, projected or falling object, initial encounter; Y99.0 Civilian activity done for income or pay
CPT/HCPCS: 71045; 73030; 99284

== ENCOUNTER 2023-10-06 09:33 | Emergency (ER) | payer OTHER, SELFPAY ==
--- NOTE | ~2023-10-06 | CT_ITS ---
EXAMINATION: CT abdomen pelvis wo con DATE: 10/06/2023 11:07 INDICATION: Right flank pain. Nausea. TECHNIQUE: Computed tomography (CT) of the abdomen and pelvis was performed without intravenous contr ast. Automated exposure control and iterative reconstruction technique were employed. The dose-length product was 572.57 mGy-cm. COMPARISON: CT abdomen and pelvis 07/18/2020, 04/22/2013 FINDINGS: The visualized portions of the lung bases demonstrate mild atelectasis. No pleural effusion . The heart size is normal. No pericardial effusion. The liver, gallbladder, spleen, pancreas, adrena l glands, and right kidney are normal. There is a 3 mm stone in left kidney. There are no dilated loo ps of bowel. The appendix is normal. There are no pathologically enlarged lymph nodes. There is no fr ee intraperitoneal fluid. 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 Th ere are changes of anterior and posterior fusion procedures at L5-S1. IMPRESSION: 1. No etiology for the patient's symptoms. Reviewed, dictated and finalized at location A. ILE TESTER
[2023-10-06 09:39] VITALS: BP 132/82; PULSE 61; RESP 17; TEMP 36.6; O2SAT 99
--- NOTE | 2023-10-06 09:48 | ED.ABDPAIN ---
HPI - Abdominal Pain General Chief Complaint: Urogenital-Male Stated Complaint: flank pain Time Seen by Provider: 10/06/23 09:46 Source: patient Mode of arrival: ambulatory Limitations: no limitations History of Present Illness HPI narrative: 38-year-old male with a history of kidney stone 6 years ago, status post back surgery L5/S1 fusion presents to the ER with -- right flank pain and right groin pain for the past few days. His pain has increased over the past 24 hours. No nausea/ vomiting. No dysuria or hematuria. No fever or chills. MD elicited complaint: flank pain Pertinent past history: kidney stones Onset (ago): day(s) Pain Consistency: intermittent Location: R flank Severity: severe Quality: aching Radiation: R flank and other ( Right flank radiating to the right groin) Exacerbating factors: nothing Relieving factors: nothing Associated symptoms: denies other symptoms Related Data Home Medications Medication Instructions Recorded Confirmed escitalopram oxalate 20 mg tablet 20 mg PO DAILY 10/06/23 10/06/23 pantoprazole 40 mg tablet,delayed 40 mg PO DAILY 10/06/23 10/06/23 release Allergies Allergy/AdvReac Type Severity Reaction Status Date / Time No Known Allergies Allergy Verified 10/06/23 09:47 Review of Systems Review of Systems: All systems reviewed & are unremarkable except as noted in HPI and below Constitutional: Constitutional: Reports as per HPI and Reports no additional constitutional complaints Eyes: Eyes: Reports as per HPI and Reports no additional eye complaints ENT: Reports system reviewed and no additional complaints, except as documented and Reports as per HPI Cardiovascular: Cardiovascular: Reports as per HPI Respiratory: Respiratory: Reports as per HPI and Reports no additional respiratory complaints Gastrointestinal: Gastrointestinal: Reports as per HPI and Reports no additional gastrointestinal complaints Genitourinary: Comments: right CV angle pain radiating to the right groin Musculoskeletal: Musculoskeletal: Reports no additional musculoskeletal complaints Integumentary/Breasts: Skin/Breast: Reports system reviewed and no additional complaints, except as docu and Reports as per HPI Neurologic: Reports system reviewed and no additional complaints, except as documented and Reports as per HPI Psychiatric: Psychiatric: Reports no additional psychiatric complaints and Reports as per HPI Endocrine: Endocrine: Reports no additional endocrine complaints and Reports as per HPI Hematologic/Lymphatic: Hematologic/Lymphatic: Reports no additional hematologic/lymphatic complaints and Reports as per HPI Allergic/Immunologic: Allergic/Immunologic: Reports no additional allergic/immunologic complaints and Reports as per [facility] Past Medical History Medical History Renal calculi Surgical History Surgical History Previous back surgery Family History Family History Mother Psoriatic arthritis Social History Social History Smoking packs per day: 1 Smoking cigarettes per day: 20.0 Years smoked: 20 Smoking pack-years: 20.00 Smoking status: Current every day smoker Tobacco type: cigarettes Alcohol intake: never Substance use: current Substance use type: marijuana Living arrangements: with family Exam Const: General: healthy appearing Nutritional Appearance: well nourished Orientation/consciousness: patient oriented x3 Limitations: no limitations HENMT: Head: normal to inspection Ears: external ears normal Face/Nose/Sinus: Normal external nose present Face and sinus: normal facial exam Mouth: Yes Normal oral and palatal mucosa present Throat: posterior oropharynx normal Eyes: Conjunctivae: conjunctivae normal Pu
[2023-10-06 10:00] VITALS: BP 134/80; PULSE 58; RESP 17; O2SAT 100
[2023-10-06] MEDS: KETOROLAC 30 MG/ML VIAL (*BKC) IV PUSH (10:06)
[2023-10-06] MEDS: LACTATED RINGERS 1,000 ML 999 ML IV CONT (10:06)
[2023-10-06 10:08] LABS: Basophils Absolute Auto 0.07 K/mm3 (0.00-0.10); Basophils Percent Auto 0.9 % (0.0-1.0); Eosinophils Absolute Auto 0.14 K/mm3 (0.02-0.50); Eosinophils Percent Auto 1.7 % (1.0-6.0); Hematocrit 40.8 % (40.0-54.0); Hemoglobin 14.2 g/dL (14.0-18.0); Immature Granulocyte Absolute 0.04 K/mm3 (0.00-0.00); Immature Granulocyte Percent A 0.5 % (0.0-0.0); Lymphocytes Percent Auto 48.6 % (18.0-42.0); Mean Corpuscular HGB Conc 34.8 g/dL (32.0-36.0); Mean Corpuscular Hemoglobin 31.2 pg (27.0-31.0); Mean Corpuscular Volume 89.7 fL (78.0-102.0); Mean Platelet Volume 9.7 fl (8.7-11.0); Monocytes Absolute Auto 0.72 K/mm3 (0.10-0.90); Monocytes Percent Auto 8.7 % (2.0-11.0); Neutrophils Absolute Auto 3.3 K/mm3 (1.7-7.2); Neutrophils Percent Auto 39.6 % (50.0-70.0); Platelet Count Result 294 K/mm3 (150-420); Red Blood Count 4.55 M/mm3 (4.70-6.10); White Blood Count 8.2 K/mm3 (4.8-10.8)
[2023-10-06 10:30] VITALS: BP 126/80; PULSE 60; RESP 17; O2SAT 99
[2023-10-06 10:39] LABS: Lactic Acid Reflex 1.7 mmol/L (0.4-2.0)
[2023-10-06 10:40] LABS: Add Urine Microscopic? YES; Appearance Urine Clear (Clear); Bacteria Urine Trace /hpf; Bilirubin Urine Negative (Negative); Blood Urine Negative (Negative); Color Urine Yellow (Yellow); Glucose Urine UA Negative (Negative); Ketones Urine Negative (Negative); Leukocyte Esterase Ur Negative LEU/UL (Negative); Mucus Urine Moderate /lpf; Nitrate Urine Negative (Negative); Protein Urine Trace (Negative); RBC Urine None seen /hpf (0-2); Specific Grav Ur >= 1.030 (1.010-1.020); WBC Urine None seen /hpf (0-3)
[2023-10-06 10:45] LABS: Alanine Aminotransferase 28 U/L (16-63); Albumin Level 3.4 g/dL (3.4-5.0); Alkaline Phosphatase 60 U/L (46-116); Anion Gap 9 mmol/L (8-16); Aspartate Amino Transferase 23 U/L (15-37); Bilirubin,Total 0.5 mg/dL (0.00-1.00); Blood Urea Nitrogen 10 mg/dL (7-18); Calcium 8.4 mg/dL (8.5-10.1); Carbon Dioxide 24 mmol/L (21-32); Chloride 103 mmol/L (98-108); Estimated Glomerular Filt Rate > 60; Glucose 95 mg/dL (70-99); Lipase 22 U/L (16-77); Osmolality Calculated 281 mOsm/kg (285-295); Potassium 3.7 mmol/L (3.5-5.1); Sodium 136 mmol/L (136-145); Total Protein 6.5 g/dL (6.4-8.2)
[2023-10-06 11:00] VITALS: BP 128/86; PULSE 58; RESP 17; O2SAT 99
--- NOTE | 2023-10-06 11:30 | PC.NURSE ---
On 10/06/23, the student, Marcela Vuogn, provided care and completed [facility] documentation on this patient. I have reviewed the student's documentation and agree with the findings.
[2023-10-06 11:36] VITALS: BP 115/74; PULSE 58; RESP 17; TEMP 36.7; O2SAT 99
== END 2023-10-06 11:36 | disposition home or self-care (01) ==
PROVIDERS: Emergency Provider Internal Medicine Critical Care Medicine; PCP Family Medicine
DX: R10.9 Unspecified abdominal pain (principal); F17.210 Nicotine dependence, cigarettes, uncomplicated; Z79.899 Other long term (current) drug therapy
CPT/HCPCS: 36415; 74176; 80053; 81001; 83605; 83690; 84550; 85025; 96361; 96374; 99284; J1885; J7120